=== PATIENT | male | born 1985 | race Two or more races ===

== ENCOUNTER 2024-07-21 19:08 | Inpatient (IN) | payer OTHER ==
[~2024-07-21] VITALS: Ht 172.7 cm; Wt 85.7 kg
--- NOTE | 2024-07-21 19:41 | NUR ---
PTE ALERTA Y ORIENTADO X 3 ESFERAS QUIEN REFIERE DESDE HERMELINDO DOLOR EN PIE RT.SE OBSERVA EL MISMO CARROLL,INFLAMADO Y SUPURANDO ENTRE DEDO 4 Y 5 DEDO.
[2024-07-21] MEDS ORDERED: GLIPIZIDE XL2.5 MG (19:42)
[2024-07-21] MEDS ORDERED: GLUMETZA500 MG (19:42)
[2024-07-21] MEDS ORDERED: 0.9 % SODIUM CHLORIDE 1,000 ML IV STA (20:10)
[2024-07-21] MEDS ORDERED: CEFTRIAXONE SODIUM 1,000 MG VIAL IV ONE (20:15)
--- NOTE | 2024-07-21 20:17 | NUR ---
PTE MASCULINO EVALUADO POR . SE ORIENTA SOBRE ORDENES DE [place] REFIERE COMPRENDER. SE COLECTAN MUESTRAS DE LABORATORIOS Y SE CANALIZA VENA BAJO MEDIDAS ASEPTOICAS. SE ADMINISTRAN MEDICAMENTOS, BAJO MEDIDAS ASEPTICAS. SE NOTIFICA A RADIOLOGIA JORGITO XRAY PENDIENTE.
[2024-07-21 20:37] LABS: HEMATOCRIT 43.5 % (39.0-48.0); HEMOGLOBIN 14.9 g/dL (13-16.00); MEAN CELL VOLUME 87.2 fL (80.0-100.00); MEAN CORPUSCULAR HEMOGLOBIN 29.9 pg (27.00-32.0); MEAN CORPUSCULAR HGB CONC 34.3 g/dl (32.0-36.0); PLATELET COUNT 188 K/uL (150-450); RED BLOOD COUNT 4.99 M/uL (4.00-6.00); RED CELL DISTRIBUTION WIDTH 12.6 % (11.5-14.5)
[2024-07-21 20:55] LABS: PH,URINE 5.5 (5.0-8.0); URINE APPEARANCE Clear; URINE BILIRRUBIN Negative (NEGATIVE); URINE BLOOD Moderate; URINE COLOR Yellow; URINE KETONE Trace (NEGATIVE); URINE LEUKOCYTE Small; URINE NITRATE Negative; URINE PROTEIN Trace (NEGATIVE)
[2024-07-21 20:56] LABS: CALCIUM 9.9 mg/dL (8.5-10.1); CREATININE SERUM 1.5 mg/dL (0.70-1.30); GFR 52.1; POTASSIUM 4.35 mEq/L (3.5-5.1)
[2024-07-21 20:59] LABS: URINE BACTERIA 54.1 uL (0.0-1933); URINE EPITHELIAL CELLS 13.8 uL (0.0-38.8); URINE RBC 72.2 uL (0.0-20.8); URINE WBC 12.6 uL (0.0-23.2)
[2024-07-21 21:00] LABS: URINE CAST 0.15 uL (0.0-1.40); URINE GLUCOSE >=1000 MG/DL (NEGATIVE)
[2024-07-21] MEDS ORDERED: INSULIN REGULAR, HUMAN 1,000 UNIT/10 ML UNITS IV ONE (21:45)
[2024-07-21] MEDS ORDERED: 0.9 % SODIUM CHLORIDE 1,000 ML IV SCH (22:15)
[2024-07-21] MEDS ORDERED: ONDANSETRON HCL 4 MG in 0.9 % SODIUM CHLORIDE 50 ML IV PRN (22:15)
[2024-07-21] MEDS ORDERED: ACETAMINOPHEN 500 MG GEL..CAP PO PRN (22:15)
[2024-07-21] MEDS ORDERED: 0.9 % SODIUM CHLORIDE 500 ML IV ONE (22:30)
[2024-07-21] MEDS ORDERED: DEXTROSE 50 % IN WATER 0.5 G/ML DISP.SYRIN IV PRN (22:30)
[2024-07-21] MEDS ORDERED: INSULIN LISPRO 1,000 UNIT/10 ML UNITS SUBCUTANEO PRN (22:30)
[2024-07-22] MEDS ORDERED: PIPERACILLIN/TAZOBACTAM SODIUM 3.375 GM in DEXTROSE 5 % IN WATER 100 ML IV SCH
[2024-07-22 02:52] LABS: INR 1.07; PARTIAL THROMBOPLASTIN TIME 33.2 SECONDS (22.0-34.0); PROTHROMBIN TIME 11.6 SECONDS (9.0-11.5)
[2024-07-22 04:00] VITALS: BP 142/87; O2SAT 97
[2024-07-22] MEDS ORDERED: ENOXAPARIN SODIUM 40 MG/0.4 ML SYRINGE SUBCUTANEO SCH (09:00)
[2024-07-22] MEDS ORDERED: FAMOTIDINE/PF 20 MG in 0.9 % SODIUM CHLORIDE 8 ML IV PUSH SCH (09:00)
[2024-07-22 09:07] VITALS: BP 137/79; O2SAT 98
[2024-07-22] MEDS ORDERED: VANCOMYCIN HCL 5 MG/ML REDILUIDO IV SCH (17:00)
[2024-07-22 18:10] VITALS: BP 146/85; O2SAT 97
[2024-07-23 01:26] VITALS: BP 127/74; O2SAT 96
[2024-07-23 06:20] LABS: HEMATOCRIT 37.6 % (39.0-48.0); HEMOGLOBIN 12.8 g/dL (13-16.00); MEAN CELL VOLUME 87.1 fL (80.0-100.00); MEAN CORPUSCULAR HEMOGLOBIN 29.6 pg (27.00-32.0); PLATELET COUNT 159 K/uL (150-450); RED BLOOD COUNT 4.32 M/uL (4.00-6.00)
[2024-07-23 06:56] LABS: ALBUMIN 3.3 gm/dL (3.4-5.0); BILIRUBIN TOTAL 0.48 mg/dL (0.3-1.2); CALCIUM 8.9 mg/dL (8.5-10.1); CREATININE SERUM 1.4 mg/dL (0.70-1.30); GFR 56.42; GLOBULINA 3.5 G/DL (2.4-3.5); MAGNESIUM 1.8 mg/dL (1.8-2.4); PHOSPHOROUS 3.1 mg/dL (2.5-4.9); POTASSIUM 4.15 mEq/L (3.5-5.1); TOTAL PROTEIN 6.8 gm/dL (6.4-8.2)
[2024-07-23 07:03] LABS: C-REACTIVE PROTEIN 9.86 MG/DL (0.00-0.29)
[2024-07-23 09:18] VITALS: BP 149/97; O2SAT 98
[2024-07-23 16:00] VITALS: BP 119/75; O2SAT 99
[2024-07-23] MEDS ORDERED: INSULIN GLARGINE,HUM.REC.ANLOG 1,000 UNITS/10 ML UNITS SUBCUTANEO SCH (21:00)
[2024-07-24 01:33] VITALS: BP 127/76; O2SAT 97
[2024-07-24 07:10] LABS: CALCIUM 8.6 mg/dL (8.5-10.1); CREATININE SERUM 1.38 mg/dL (0.70-1.30); GFR 57.36; POTASSIUM 4.41 mEq/L (3.5-5.1)
[2024-07-24] MEDS ORDERED: INSULIN LISPRO 1,000 UNIT/10 ML UNITS SUBCUTANEO SCH (08:00)
[2024-07-24 09:41] VITALS: BP 122/67; O2SAT 98
[2024-07-24 18:31] VITALS: BP 136/84; O2SAT 98
[2024-07-24] MEDS ORDERED: INSULIN GLARGINE,HUM.REC.ANLOG 1,000 UNITS/10 ML UNITS SUBCUTANEO SCH (21:00)
[2024-07-25 05:27] VITALS: BP 116/71; O2SAT 99
[2024-07-25] MEDS ORDERED: INSULIN LISPRO 1,000 UNIT/10 ML UNITS SUBCUTANEO SCH (08:00)
[2024-07-25 08:37] VITALS: BP 125/75; O2SAT 95
[2024-07-25] MEDS ORDERED: LEVOFLOXACIN750 MG PO (15:52)
[2024-07-25] MEDS ORDERED: INSULIN GL100 UNIT/1 SUBCUTANEO (15:52)
[2024-07-25] MEDS ORDERED: JANUMET 50-5001 EACH PO (15:52)
== END 2024-07-25 16:03 | disposition home or self-care (01) | DRG 639 ==
LOC: ER 19:09 → MEDI 22:19
PROVIDERS: Emergency Medicine; General Practice; Internal Medicine Endocrinology, Diabetes & Metabolism; Internal Medicine Infectious Disease; ADMIT Internal Medicine; ATTEND Internal Medicine
DX: E11.621 Type 2 diabetes mellitus with foot ulcer (principal); L97.519 Non-pressure chronic ulcer of other part of right foot with unspecified severity; L03.031 Cellulitis of right toe; N17.9 Acute kidney failure, unspecified; B96.4 Proteus (mirabilis) (morganii) as the cause of diseases classified elsewhere; B96.89 Other specified bacterial agents as the cause of diseases classified elsewhere; E11.65 Type 2 diabetes mellitus with hyperglycemia; Z79.4 Long term (current) use of insulin; I10 Essential (primary) hypertension; E11.628 Type 2 diabetes mellitus with other skin complications